=== PATIENT | female | born 1945 | race Caucasian/White ===

== ENCOUNTER 2017-05-10 12:22 | Day surgery (SDC) | payer MEDICARE ==
[~2017-05-10] VITALS: Ht 175.3 cm; Wt 77.0 kg
[~2017-05-10 12:22] MED LIST: 0.9% Sodium Chloride 1,000 ML IV SCH; FLUT15.88 NS; FLUT9.9S NS; LATA2.5D6 OP; NAPR500T PO; RANI75TA72 PO; Sodium Chloride LOK Flush 10 mL Syringe IV PRN; VENL75CA PO; fentaNYL-PF 50 mCg/mL 2 mL Inj IVPUSH PRN
[2017-05-10 12:46] VITALS: BP 138/75; PULSE 62; RESP 14; O2SAT 96
[2017-05-10] MEDS ORDERED: fentaNYL-PF 50 mCg/mL 2 mL Inj ONE (12:50)
[2017-05-10] MEDS ORDERED: 0.9% Sodium Chloride 1,000 ML IV ONE (13:38)
[2017-05-10 14:00] VITALS: BP 133/77; PULSE 60; RESP 14; O2SAT 100
[2017-05-10 14:08] VITALS: BP 152/83; PULSE 55; RESP 16; O2SAT 99
--- NOTE | 2017-05-10 21:13 | ENDO ---
[address] [address] ENDOSCOPY PROCEDURE PATIENT: KEANU CAMACHO : 1945 MR#: [id number] ADMIT: 05/10/2017 JOB ID: [id number] CORRECTED REPORT: DATE: 05/10/2017 PRIMARY PROVIDER: Juventino Timmons MD. PROCEDURE: Colonoscopy with hot snare polypectomy, cold forceps polypectomy. INDICATIONS: A 71-year-old female who reports for colon cancer screening. She had a positive fecal occult blood test. EQUIPMENT: [employer]. SEDATION: 4 mg Versed and 100 mcg fentanyl. COMPLICATIONS: None identified. BOWEL PREPARATION: Fair at best. PROCEDURE INFORMATION: After the risks and benefits were explained, written and verbal informed consent was obtained. The patient was brought into the endoscopy suite and placed into the left lateral decubitus position. Sedation was achieved as above. A digital rectal examination accomplished. Mild internal hemorrhoids noted. The scope was introduced into the rectum and advanced to the cecum as identified by the appendiceal orifice and ileocecal valve. The scope was slowly withdrawn to carefully examine the mucosa for any defects or lesions. Retroflexed views were avoided in the rectum. Multiple direct views were made through the dentate line for exclusion of pathology. The colon was decompressed and the scope removed from the patient who tolerated the procedure well. FINDINGS: There was some diverticulosis throughout the left colon. Challenging redundant bowel made navigation to cecum somewhat difficult. In the cecum there was an approximately 6 mm sessile polyp removed with hot snare. In the transverse there was a diminutive polyp removed with cold forceps. These were submitted together as "colon polyps." No other significant pathology was appreciated throughout. ENDOSCOPIC DIAGNOSES: 1. Colon polyps. 2. Diverticulosis. 3. Hemorrhoids. RECOMMENDATIONS: 1. Await histopathology. 2. If adenomatous features are identified, repeat colonoscopy will be suggested for approximately five years' time. Corrected by TATA 05/14/17 at 2:31pm DOS.
--- NOTE | 2017-05-13 12:12 | PATH ---
SURGICAL PATHOLOGY Attending Physician:Sandra Uriostegui CASE STATUS: Signed Out PATIENT NAME: KEANU CAMACHO PID: [id number] : 1945 DATE COLLECTED:05/10/2017 00:00 SPECIMEN: Colon, Polyp CLINICAL HISTORY: 1). COLON POLYPS FINAL DIAGNOSIS: 1.COLON POLYPS, BIOPSY: - TUBULAR ADENOMA IN 1 OF 2 FRAGMENTS. - SERRATED POLYP FAVOR HYPERPLASTIC POLYP IN 1 OF 2 FRAGMENTS. - ONE FRAGMENTOF VEGETABLE MATTER. ICD10 D12.6 GROSS DESCRIPTION: The specimen is received in one formalin filled container labeled with the patient's name, sublabeled "colon polyps" and consists of 3 portions of tissue which aggregate to zero and 3 x 0.3 x 0.2 CM. The specimen is entirely submitted in one cassette. 05/11/2017DC MICRO DESCRIPTION: See diagnosis. ICD-9 CODES: CPT CODES: 1: 01458 Electronically Signed Out Darius Mccann MD [facility] [address], [place] [address] Technical component performed at [facility], [facility] [address], [place], [address]
== END 2017-05-10 23:59 | disposition home or self-care (01) ==
LOC: END 12:22
PROVIDERS: ATTEND Internal Medicine Gastroenterology
DX: Z12.11 Encounter for screening for malignant neoplasm of colon (principal); D12.0 Benign neoplasm of cecum; K63.5 Polyp of colon; K64.9 Unspecified hemorrhoids; K57.30 Diverticulosis of large intestine without perforation or abscess without bleeding; K59.00 Constipation, unspecified; R19.5 Other fecal abnormalities; F32.9 Major depressive disorder, single episode, unspecified; Z87.891 Personal history of nicotine dependence; Z96.653 Presence of artificial knee joint, bilateral
CPT/HCPCS: 45380; 45385; 99153; G0500; J2250; J3010; J7030